=== PATIENT | female | born 1940 | race Caucasian/White ===

== ENCOUNTER → 2016-10-23 | Outpatient (CLI) | payer OTHER | LOC: MMPC 11:11 | PROVIDERS: ATTEND Internal Medicine | DX: I10 Essential (primary) hypertension (principal); N39.0 Urinary tract infection, site not specified; I48.2 Chronic atrial fibrillation; M10.9 Gout, unspecified; M81.0 Age-related osteoporosis without current pathological fracture | CPT/HCPCS: 99213; G0463 ==

== ENCOUNTER → 2016-10-24 | Outpatient (CLI) | payer OTHER ==
[2016-10-24 16:08] LABS: BUN/CREATININE RATIO 11.66 (6-20); CALCIUM 10.1 mg/dL (8.7-10.7); CREATININE 1.2 mg/dL (0.50-1.20)
[2016-10-24 16:12] LABS: BILIRUBIN,URINE NEGATIVE (NEG); CLARITY,URINE CLEAR (CLEAR); GLUCOSE, URINE (UA) NEGATIVE (NEG); LEUKOCYTE ESTERASE ,URINE NEGATIVE (NEG); NITRATE,URINE NEGATIVE (NEG); OCCULT BLOOD,URINE SMALL (NEG); PROTEIN,URINE NEGATIVE (NEG); UROBILINOGEN,URINE 0.2 mg/dL (0.2)
[2016-10-24 16:17] LABS: BACTERIA,URINE MODERATE; SQUAMOUS EPITHELIAL CELL,UR MODERATE; URINE SAMPLE TYPE VOIDED SPECIMEN; WBC,URINE 0-1
== END ==
LOC: LAB 14:33
PROVIDERS: ATTEND Internal Medicine
DX: I10 Essential (primary) hypertension (principal); N39.0 Urinary tract infection, site not specified; R82.99 Other abnormal findings in urine
CPT/HCPCS: 36415; 80048; 81001; 87088

== ENCOUNTER → 2016-11-08 | Outpatient (CLI) | payer OTHER | LOC: MMPC 10:00 | PROVIDERS: ATTEND Podiatrist Foot & Ankle Surgery | DX: L84 Corns and callosities (principal); I73.9 Peripheral vascular disease, unspecified; Z87.2 Personal history of diseases of the skin and subcutaneous tissue; E66.8 Other obesity; M21.622 Bunionette of left foot; Z98.890 Other specified postprocedural states | CPT/HCPCS: 11056 ×2; 99212; G0463 ==

== ENCOUNTER → 2016-12-06 | Outpatient (CLI) | payer OTHER | LOC: MMPC 10:00 | PROVIDERS: ATTEND Podiatrist Foot & Ankle Surgery | DX: M79.672 Pain in left foot (principal); L84 Corns and callosities | CPT/HCPCS: 11055 ×2; G0463 ==

== ENCOUNTER → 2016-12-26 | Outpatient (CLI) | payer OTHER | LOC: MMPC 11:11 | PROVIDERS: ATTEND Internal Medicine | DX: I10 Essential (primary) hypertension (principal); M81.0 Age-related osteoporosis without current pathological fracture; I48.2 Chronic atrial fibrillation; K21.9 Gastro-esophageal reflux disease without esophagitis; E03.9 Hypothyroidism, unspecified; M10.9 Gout, unspecified | CPT/HCPCS: 99213; G0463 ==

== ENCOUNTER → 2017-01-08 | Outpatient (CLI) | payer OTHER | LOC: MMPC 09:00 | PROVIDERS: ATTEND Physician Assistant | DX: S61.502A Unspecified open wound of left wrist, initial encounter (principal); W54.1XXA Struck by dog, initial encounter | CPT/HCPCS: 90715; 99212; G0463 ==

== ENCOUNTER → 2017-01-10 | Outpatient (CLI) | payer OTHER ==
[2017-01-10 11:10] LABS: HEMATOCRIT 47.1 % (37.0-47.0); HEMOGLOBIN 16.2 g/dL (12.0-16.0); MEAN CORPUSCULAR HEMOGLOBIN 32.2 PG (27-31); MEAN CORPUSCULAR HGB CONC 34.4 g/dL (33-37); MEAN CORPUSCULAR VOLUME 93.6 FL (81-99); MEAN PLATELET VOLUME 10.3 FL (7.4-12.2); RED BLOOD COUNT 5.03 10^6/uL (4.20-5.40)
[2017-01-10 11:19] LABS: CALCIUM 9.8 mg/dL (8.7-10.7); PHOSPHORUS 4.2 mg/dl (2.4-4.3); SERUM ALBUMIN 4.2 g/dL (3.5-4.8)
== END ==
LOC: LAB 10:45
PROVIDERS: ATTEND Internal Medicine Nephrology
DX: I12.9 Hypertensive chronic kidney disease with stage 1 through stage 4 chronic kidney disease, or unspecified chronic kidney disease (principal); N18.3 Chronic kidney disease, stage 3 (moderate); D63.1 Anemia in chronic kidney disease; N25.81 Secondary hyperparathyroidism of renal origin
CPT/HCPCS: 36415; 80069; 83970; 85027

== ENCOUNTER → 2017-01-18 | Outpatient (CLI) | payer OTHER | LOC: MMPC 10:00 | PROVIDERS: ATTEND Podiatrist Foot & Ankle Surgery | DX: M79.672 Pain in left foot (principal); L84 Corns and callosities; M21.622 Bunionette of left foot; I73.9 Peripheral vascular disease, unspecified; L60.3 Nail dystrophy | CPT/HCPCS: 11056 ×2; 11721 ×2; G0463 ==

== ENCOUNTER 2017-02-23 13:17 | Emergency (ER) | payer OTHER ==
[2017-02-23 14:21] VITALS: RESP 17; TEMP 96.4
--- NOTE | 2017-02-23 14:33 | DI ---
XR KNEE 3 VW,02/23/2017 2:00 PM: Clinical History: Chronic pain Previous Exam: July 17, 2016 Findings: 3 views of the right knee are obtained, and demonstrate loss of joint space tricompartmentally with d iffuse osteopenia and osteophyte formation. This is worst involving the lateral compartment. A few vague calcifications are noted involving the medial meniscus consistent with hydroxyapatite dep osition. Impression: Advanced degenerative osteoarthritis worst involving the lateral compartment.
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
== END 2017-02-23 14:58 | disposition home or self-care (01) ==
LOC: ER 13:17
DX: M17.11 Unilateral primary osteoarthritis, right knee (principal); M25.562 Pain in left knee; M25.561 Pain in right knee; I48.91 Unspecified atrial fibrillation; Z79.01 Long term (current) use of anticoagulants
CPT/HCPCS: 73562; 99282; 99283

== ENCOUNTER → 2017-03-01 | Outpatient (CLI) | payer OTHER | LOC: MMPC 10:00 | PROVIDERS: ATTEND Podiatrist Foot & Ankle Surgery | DX: M79.672 Pain in left foot (principal); L84 Corns and callosities | CPT/HCPCS: 11055 ×2; G0463 ==

== ENCOUNTER → 2017-03-09 | Outpatient (CLI) | payer OTHER | LOC: MMPC 10:00 | PROVIDERS: ATTEND Orthopaedic Surgery | DX: M25.562 Pain in left knee (principal); M17.11 Unilateral primary osteoarthritis, right knee | CPT/HCPCS: 20610; 99213; G0463; J0702; J7325 ==

== ENCOUNTER → 2017-04-11 | Outpatient (CLI) | payer OTHER | LOC: MMPC 10:00 | PROVIDERS: ATTEND Podiatrist Foot & Ankle Surgery | DX: L84 Corns and callosities (principal); M79.672 Pain in left foot; L60.3 Nail dystrophy; I73.9 Peripheral vascular disease, unspecified | CPT/HCPCS: 11055; 11720; G0463 ==

== ENCOUNTER → 2017-04-13 | Outpatient (CLI) | payer OTHER ==
[2017-04-13 10:18] LABS: HEMATOCRIT 47.8 % (37.0-47.0); HEMOGLOBIN 16.2 g/dL (12.0-16.0); MEAN CORPUSCULAR HEMOGLOBIN 32.2 PG (27-31); MEAN CORPUSCULAR HGB CONC 33.9 g/dL (33-37); MEAN PLATELET VOLUME 9.9 FL (7.4-12.2); RED BLOOD COUNT 5.03 10^6/uL (4.20-5.40)
[2017-04-13 10:32] LABS: CALCIUM 9.6 mg/dL (8.7-10.7); SERUM ALBUMIN 4.1 g/dL (3.5-4.8)
--- NOTE | 2017-04-13 10:43 | EKG ---
[address] [place] [address] Measurements Intervals Fisher Rate: 138 P: CO: 0 QRS: 42 QRSD: 82 T: -19 QT: 318 QTc: 399 Interpretive Statements ATRIAL FIBRILLATION WITH RAPID VENTRICULAR RESPONSE MINIMAL ST DEPRESSION [0.025+ mV ST DEPRESSION] ABNORMAL QRS-T ANGLE [QRS-T AXIS DIFFERENCE > 60] Compared to ECG 08/10/2015 10:35:26 ST (T wave) deviation now present Electronically Signed On 04-17-17 15:29:24 MDT by Huseyin Ferreira MD [email or web address]
== END ==
LOC: LAB 09:58
PROVIDERS: ATTEND Orthopaedic Surgery Adult Reconstructive Orthopaedic Surgery
DX: M25.572 Pain in left ankle and joints of left foot (principal); I48.91 Unspecified atrial fibrillation
CPT/HCPCS: 36415; 80053; 85027; 85610; 85730; 87641; 93005; 93010

== ENCOUNTER → 2017-04-19 | Outpatient (CLI) | payer OTHER ==
[2017-04-19 10:48] LABS: BUN/CREATININE RATIO 16.36 (6-20); CALCIUM 9.7 mg/dL (8.7-10.7); CHOL/HDL RATIO 2.28 RATIO (0-4.0); LDL CHOLESTEROL,CALCULATED 71.4 mg/dL; SERUM ALBUMIN 3.9 g/dL (3.5-4.8)
== END ==
LOC: LAB 08:19
PROVIDERS: ATTEND Internal Medicine Cardiovascular Disease
DX: I25.10 Atherosclerotic heart disease of native coronary artery without angina pectoris (principal)
CPT/HCPCS: 36415; 80053; 80061

== ENCOUNTER → 2017-04-25 | Outpatient (CLI) | payer OTHER | LOC: MMPC 11:11 | PROVIDERS: ATTEND Internal Medicine | DX: I10 Essential (primary) hypertension (principal); M81.0 Age-related osteoporosis without current pathological fracture; K21.9 Gastro-esophageal reflux disease without esophagitis; I48.2 Chronic atrial fibrillation; E03.9 Hypothyroidism, unspecified; M12.572 Traumatic arthropathy, left ankle and foot; M17.12 Unilateral primary osteoarthritis, left knee; M10.9 Gout, unspecified | CPT/HCPCS: 99213; G0463 ==